=== PATIENT | female | born 1975 | race Caucasian/White ===

== ENCOUNTER → 2017-12-14 | Outpatient (CLI) | payer OTHER ==
[~2017-12-14] MED LIST: ALDOMET 250MG250 MG PO; BUPAP PO; CYMBALTA 60MG60 MG PO; INDERAL80 MG PO; LYRICA 75MG CAP75 MG PO; PRENATAL VITAMI1 TA5 PO; REQUIP 0.5MG0.5 MG PO; ZANTAC 150150 MG PO; [UNRECOGNIZED DRUG - OTHER]; [UNRECOGNIZED DRUG - OTHER] PO; [UNRECOGNIZED DRUG - OTHER] PO
== END ==
LOC: COL.RAD 13:24
DX: N20.0 Calculus of kidney (principal); K80.20 Calculus of gallbladder without cholecystitis without obstruction

== ENCOUNTER 2018-08-01 13:34 | Observation (INO) | payer BC ==
[~2018-08-01] VITALS: Ht 170.2 cm; Wt 76.6 kg
[2018-08-01 14:46] LABS: BASO % 0.2 % (0.0-2.0); EOS # 0.1 (0.0-0.7); EOS % 0.7 % (0-4.0); GRAN # 9.5 (1.4-6.5); GRAN % 67.5 % (42.2-75.2); HEMATOCRIT 45.2 % (37.0-47.0); LYMPH # 3.6 (1.2-3.4); LYMPH % 25.7 % (20.0-51.0); MEAN CELL VOLUME 92 fl (80.0-100.0); MEAN CORPUSCULAR HEMOGLOBIN 31 pg (27.0-31.0); MEAN CORPUSCULAR HGB CONC 33 g/dl (33.0-37.0); MEAN PLATELET VOLUME 11.5 fl (7.4-10.4); MONO # 0.8 (0.1-0.6); MONO % 5.5 % (1.7-9.3); PLATELET COUNT 251 K/mm3 (130-400); RED BLOOD COUNT 4.92 M/mm3 (4.10-5.30); REDCELL DISTRIBUTION WIDTH-CV 13.3 % (11.5-14.5)
[2018-08-01 14:59] LABS: ALANINE AMINOTRANSFERASE 103 U/L (9-52); ALBUMIN 4.1 gm/dL (3.5-5.0); ALKALINE PHOSPHATASE 76 U/L (50-136); ANION GAP 13 mmol/L (7-16); AST,SGOT 205 U/L (15-37); BILIRUBIN,TOTAL 0.8 mg/dL (0.0-1.0); BLOOD UREA NITROGEN 12 mg/dL (7-17); C-REACTIVE PROTEIN 0.9 mg/dL (0.0-0.9); CALCIUM 9.4 mg/dL (8.4-10.2); CARBON DIOXIDE 25 mmol/L (22-30); CHLORIDE 102 mmol/L (98-107); CREATININE, serum 0.82 (0.52-1.25); GLUCOSE 128 mg/dL (74-106); LIPASE 122 U/L (23-300); POTASSIUM 3.5 mmol/L (3.4-5.0); SODIUM 140 mmol/L (137-145); TOTAL PROTEIN 7.7 gm/dL (6.4-8.2)
[2018-08-01 15:09] LABS: TROPONIN-I < 0.012 ng/mL (0.000-0.035)
[2018-08-01 17:32] VITALS: BP 136/91; PULSE 16; TEMP 97.9
--- NOTE | 2018-08-01 18:35 | NUR ---
Patient in bed resting, spouse at bedside. Initial assessment complete. Patient denies pain at this time. Denies further needs at this time. 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
[2018-08-01 19:08] VITALS: BP 142/90; PULSE 74; TEMP 98.1
--- NOTE | 2018-08-01 23:09 | NUR ---
Report received from KRYSTYNA Hobbs at beginning of the shift. Patient has been resting in bed. Ambulates with steady gait to the bathroom. Complains of right upper quadrant pain that radiates to her shoulder blades. PRN Pain medication administered, along with zofran to prevent nausea/vomiting. Denies any further needs at this time. Will monitor.
[2018-08-01 23:25] VITALS: BP 127/82; PULSE 70; TEMP 97.4
[2018-08-02] VITALS (10 sets, daily range): BP systolic 115–132; BP diastolic 68–95; PULSE 68–86; TEMP 97.4–98.3
--- NOTE | 2018-08-02 05:13 | NUR ---
Patient has rested well throughout the night. Required pain medication x2 throughout the shift. Noted to be effective for pain relief. Will continue to monitor patient.
--- NOTE | 2018-08-02 06:58 | NUR ---
Report given to KRYSTYNA Hobbs.
--- NOTE | 2018-08-02 08:03 | NUR ---
Patient in bed resting. Alert and oriented x 3. Shift assessment complete. Denies pain at this time. IV fluids infusing per orders via pump to left AC. Consent signed. Denies further needs at this time.
--- NOTE | 2018-08-02 10:27 | NUR ---
Patient down to Or by bed with Jesús
--- NOTE | 2018-08-02 13:24 | NUR ---
BHAVIN met with the patient to discuss a discharge plan. The pt lives in [facility] with her , Rich and their three children. The pt does not use any DME and reports independence with ADLs. The pt's PCP is Dr. Glasgow and the pt receives her medications from [facility]. The pt reports no difficulties obtaining his medications. The pt does not have advanced directives in the EMR and was not interested in obtaining a DPOA-HC form. The pt plans to return home upon discharge. There are no additional needs at this time.
--- NOTE | 2018-08-02 13:30 | NUR ---
Patient up from OR by bed. Alert and oriented. Post op fluids infusing via gravity. SCDs to BLE. Patient up to restroom, steady gait with stand by assist. Voiding without difficulty. Post op VS stable. Lap sites x 4 with bandaids, CDI. States pain 4/10 to abdomen, prn dose of tylenol given. Denies further needs at this time.
--- NOTE | 2018-08-02 16:19 | NUR ---
Discharge education provided to patient. Educated patient on signs and symptoms of infection. Patient educated on when to shower and incision care as well as when to call provider. Patient educated on norco and medication safety. All questions answered. INT to left AC discontinued, catheter tip intact. Tolerated procedure well. Denies pain or further needs at this time. Patient out by wheelchair with surgical staff, spouse and son.
== END 2018-08-02 16:25 | disposition home or self-care (01) ==
LOC: COL.ER 13:34 → SURG 16:06
PROVIDERS: Emergency Medicine; ADMIT Surgery
DX: K80.10 Calculus of gallbladder with chronic cholecystitis without obstruction (principal); M79.7 Fibromyalgia; F17.210 Nicotine dependence, cigarettes, uncomplicated; Z88.1 Allergy status to other antibiotic agents
CPT/HCPCS: G0378; J0696; J1100; J1170; J1885; J2405; J2704; J2710; J2765; J3010; J7030; J7120; Q9967